=== PATIENT | female | born 1995 | race African-American/Black ===

== ENCOUNTER 2020-06-20 12:44 | Inpatient (IN) | payer MEDICAID ==
[~2020-06-20] VITALS: Ht 170.2 cm; Wt 61.7 kg
[2020-06-20 13:26] LABS: BASOPHILS % 1.4 % (0.0-2.0); EOSINOPHILS % 1.4 % (0.0-5.0); HEMATOCRIT. 36.1 % (36.0-48.0); HEMOGLOBIN. 12.6 g/dL (12.0-16.0); LYMPHOCYTES % 22.6 % (20.0-50.0); MEAN CORPUSCULAR HEMOGLOBIN 29.9 pg (28.0-32.0); MEAN CORPUSCULAR VOLUME 85.7 fL (81.0-99.0); MONOCYTES % 6.8 % (2.0-8.0); NEUTROPHILS % 67.8 % (40.0-76.0); RED BLOOD CELL COUNT 4.21 mill/uL (4.2-5.4); RED CELL DISTRIBUTION WIDTH 13.1 % (11.6-14.6)
[2020-06-20 13:28] LABS: CLARITY URINE CLEAR (CLEAR); COLOR URINE YELLOW (YELLOW); KETONES URINE NEGATIVE (NEGATIVE); LEUKOCYTE ESTERASE URINE TRACE (NEGATIVE); NITRITE URINE NEGATIVE (NEGATIVE); OCCULT BLOOD URINE NEGATIVE (NEGATIVE); PROTEIN URINE 1+ (NEGATIVE); SPECIFIC GRAVITY URINE 1.019 (1.005-1.030)
[2020-06-20] MEDS ORDERED: ACETAMINOPHEN 500MG TABLET PO NR (13:30)
[2020-06-20 13:35] LABS: CHLORIDE 107 mEq/L (98-107)
[2020-06-20 13:39] LABS: D-DIMER 0.94 mg/L FEU (<0.50); INR 0.9; PARTIAL THROMBOPLASTIN TIME 29.3 sec (23.4-31.0); PROTHROMBIN TIME 9.5 sec (9.6-11.0)
[2020-06-20 14:14] LABS: PLATELET 144 x1000/uL (130-400)
[2020-06-20] MEDS: LACTATED RINGERS 1,000 ML IV SCH (17:48)
[2020-06-20] MEDS ORDERED: BETAMETHASONE ACET/BETAMET 30 MG/5 ML VIAL IM STA (17:58)
[2020-06-20] MEDS ORDERED: LABETALOL HCL 5MG/ML VIAL 20ML IV PRN ×3 (18:00)
[2020-06-20] MEDS ORDERED: HYDRALAZINE 20MG/ML VIAL IV PRN (18:00)
[2020-06-20] MEDS: LABETALOL HCL 100MG TABLET PO SCH (18:17)
[2020-06-20 20:26] LABS: HEPATITIS B SURFACE ANTIGEN NEGATIVE
[2020-06-21] MEDS: LABETALOL HCL 100MG TABLET PO SCH ×2 (06:23→18:03)
[2020-06-21] MEDS: ACETAMINOPHEN 500MG TABLET PO PRN ×2 (10:54→22:39)
[2020-06-21] MEDS ORDERED: BETAMETHASONE ACET/BETAMET 30 MG/5 ML VIAL IM ONE (18:15)
[2020-06-21 20:16] LABS: CREATININE URINE (RAW) 68.9 mg/dl
[2020-06-21 21:14] LABS: *AMPHETAMINES SCREEN URINE NEGATIVE (NEGATIVE); *BARBITURATES SCREEN URINE NEGATIVE (NEGATIVE); *BENZODIAZEPINES SCREEN URINE NEGATIVE (NEGATIVE); *COCAINE SCREEN URINE NEGATIVE (NEGATIVE)
[2020-06-21 21:15] LABS: METHADONE URINE SCREEN NEGATIVE (NEGATIVE); OPIATES URINE SCREEN NEGATIVE (NEGATIVE); PHENCYCLIDINE URINE SCREEN NEGATIVE (NEGATIVE)
[2020-06-21 21:46] LABS: CANNABINOID URINE SCREEN PRESUMTIVE POSITIVE (NEGATIVE)
[2020-06-22] MEDS: LACTATED RINGERS 1,000 ML IV SCH ×2 (03:55→17:10)
[2020-06-22] MEDS: LABETALOL HCL 100MG TABLET PO SCH ×2 (06:34→18:32)
[2020-06-22] MEDS: ACETAMINOPHEN 500MG TABLET PO PRN (08:04)
[2020-06-22] MEDS ORDERED: KETOROLAC 30MG/ML VIAL IV PRN (20:15)
[2020-06-22] MEDS ORDERED: DIPHENHYDRAMINE 50MG/ML VIAL IV NR (20:15)
[2020-06-22] MEDS ORDERED: LABETALOL 5MG/ML SYR 20 MG/4 ML SYRINGE IV PRN (20:15)
[2020-06-22] MEDS ORDERED: BUTORPHANOL TARTRATE 2 MG/ML VIAL IM PRN (20:15)
[2020-06-22] MEDS ORDERED: ONDANSETRON HCL 4MG/2ML INJ IV PRN ×2 (20:15→20:45)
[2020-06-22] MEDS ORDERED: MEPERIDINE HCL/PF 25MG/ML CPJ IV PRN (20:15)
[2020-06-22] MEDS ORDERED: HYDROMORPHONE HCL/PF 2MG/ML CPJ IV PRN (20:15)
[2020-06-22] MEDS ORDERED: LABETALOL HCL 5MG/ML VIAL 20ML IV PRN (20:30)
[2020-06-22] MEDS ORDERED: MORPHINE SULFATE/PF 1MG/ML 10ML AMP ONE (20:42)
[2020-06-22] MEDS ORDERED: FENTANYL CITRATE/PF 50MCG/ML 2ML VIAL ONE (20:42)
[2020-06-22] MEDS ORDERED: HYDROCODONE/ACETAMINOPHEN 5/325MG TABLET PO PRN (20:45)
[2020-06-22] MEDS ORDERED: DIPHENHYDRAMINE 25MG CAPSULE PO PRN (20:45)
[2020-06-22] MEDS ORDERED: IBUPROFEN 400MG TABLET PO PRN (20:45)
[2020-06-22] MEDS ORDERED: BISACODYL 10MG SUPP PR PRN (20:45)
[2020-06-22] MEDS: DEXT 5%/LR + PITOCIN 20UNITS/L 1,000 ML IV SCH (22:49)
[2020-06-23] VITALS (14 sets, daily range): BP systolic 125–168; BP diastolic 70–89
[2020-06-23] MEDS: LABETALOL HCL 100MG TABLET PO SCH ×4 (02:22→19:21)
[2020-06-23] MEDS: DEXT 5%/LR + PITOCIN 20UNITS/L 1,000 ML IV SCH (04:20)
[2020-06-23 06:01] LABS: BASOPHILS % 0.2 % (0.0-2.0); HEMATOCRIT. 31.9 % (36.0-48.0); HEMOGLOBIN. 10.9 g/dL (12.0-16.0); MEAN CORPUSCULAR HEMOGLOBIN 29.6 pg (28.0-32.0); MEAN CORPUSCULAR VOLUME 86.5 fL (81.0-99.0); MEAN PLATELET VOLUME 11.5 fl (7.4-10.4); MONOCYTES % 5.6 % (2.0-8.0); NEUTROPHILS % 80.2 % (40.0-76.0); PLATELET 122 x1000/uL (130-400); RED BLOOD CELL COUNT 3.68 mill/uL (4.2-5.4); RED CELL DISTRIBUTION WIDTH 13.6 % (11.6-14.6)
[2020-06-23] MEDS ORDERED: PRENATAL VIT/FE FUMARATE/FA TABLET PO SCH (09:00)
[2020-06-23] MEDS ORDERED: LORATADINE 10MG TABLET PO SCH (09:00)
[2020-06-23] MEDS: SIMETHICONE 80MG TABLET CHEW PO SCH ×2 (10:13→19:22)
[2020-06-23] MEDS: FERROUS SULFATE 325MG TABLET PO SCH ×2 (10:14→19:22)
[2020-06-23] MEDS: MAGNESIUM/ALUMINUM HYDROXIDE/SIMETHICONE 30ML UDC PO SCH ×2 (10:14→19:21)
[2020-06-23] MEDS: DOCUSATE SODIUM 100MG CAPSULE PO SCH ×2 (19:22→21:00)
[2020-06-23] MEDS: IBUPROFEN 800MG TABLET PO PRN (20:59)
[2020-06-24 00:01] VITALS: BP 150/81
[2020-06-24 04:30] VITALS: BP 137/86
[2020-06-24] MEDS: LABETALOL HCL 100MG TABLET PO SCH ×3 (05:00→21:09)
[2020-06-24 08:00] VITALS: BP 151/87
[2020-06-24] MEDS: IBUPROFEN 800MG TABLET PO PRN (09:37)
[2020-06-24] MEDS: FERROUS SULFATE 325MG TABLET PO SCH (09:37)
[2020-06-24] MEDS: SIMETHICONE 80MG TABLET CHEW PO SCH ×2 (09:38→21:08)
[2020-06-24 12:20] VITALS: BP 134/60
[2020-06-24 15:20] VITALS: BP 122/68
[2020-06-24 19:30] VITALS: BP 129/85
[2020-06-24] MEDS: MAGNESIUM/ALUMINUM HYDROXIDE/SIMETHICONE 30ML UDC PO SCH (21:09)
[2020-06-25] MEDS: IBUPROFEN 800MG TABLET PO PRN (00:30)
[2020-06-25 05:10] VITALS: BP 139/71
[2020-06-25] MEDS: LABETALOL HCL 100MG TABLET PO SCH (05:51)
[2020-06-25 08:00] VITALS: BP 130/70
[2020-06-25] MEDS ORDERED: IBUP-2030 PO (13:26)
[2020-06-25] MEDS ORDERED: FERR325T23 PO (13:26)
== END 2020-06-25 14:30 | disposition home or self-care (01) | DRG 540 ==
LOC: 8 EST LDRP 12:44 → OBSVTOIN 12:44 → 8EST NSY 19:53 → 8 EST A/PP 21:27 → 8EST 06-23 01:51
PROVIDERS: ADMIT Obstetrics & Gynecology; ATTEND Obstetrics & Gynecology
PROC: 10D00Z1 Extraction of Products of Conception, Low, Open Approach (ICD-10-PCS; principal; 2020-06-22)
DX: O34.211 Maternal care for low transverse scar from previous cesarean delivery (principal); O60.14X0 Preterm labor third trimester with preterm delivery third trimester, not applicable or unspecified; O36.5930 Maternal care for other known or suspected poor fetal growth, third trimester, not applicable or unspecified; O13.4 Gestational [pregnancy-induced] hypertension without significant proteinuria, complicating childbirth; O41.03X0 Oligohydramnios, third trimester, not applicable or unspecified; Z37.0 Single live birth; Z3A.34 34 weeks gestation of pregnancy; O99.324 Drug use complicating childbirth; F12.10 Cannabis abuse, uncomplicated; O99.03 Anemia complicating the puerperium; D62 Acute posthemorrhagic anemia; D69.6 Thrombocytopenia, unspecified; O14.15 Severe pre-eclampsia, complicating the puerperium; D72.829 Elevated white blood cell count, unspecified; O99.13 Other diseases of the blood and blood-forming organs and certain disorders involving the immune mechanism complicating the puerperium; Z20.822 Contact with and (suspected) exposure to COVID-19
CPT/HCPCS: 36415; 76805; 76818; 80053; 80305; 80349; 81003; 82575; 84550; 85025; 85379; 85384; 86592; 86703; 86762; 86850; 86900; 87340; 87426; 88307; 99281; G0378; J0702; J1885; J2274; J2590; J3010; J3490; A4315

== ENCOUNTER 2022-12-07 07:01 | Emergency (ER) | payer MEDICAID ==
[~2022-12-07] VITALS: Ht 170.2 cm; Wt 57.0 kg
[~2022-12-07 07:01] MED LIST: FERR325T23 PO; IBUP-2030 PO
[2022-12-07 07:12] VITALS: BP 127/85; PULSE 94; RESP 16; TEMP 98.3; O2SAT 100
[2022-12-07 07:52] LABS: HEMATOCRIT 40.2 % (36.0-48.0); HEMOGLOBIN 13.8 g/dL (12.0-16.0); MEAN CORPUSCULAR HEMOGLOBIN 31.5 pg (28.0-32.0); MEAN CORPUSCULAR VOLUME 91.6 fL (81.0-99.0); PLATELET 179 x1000/uL (130-400); RED BLOOD CELL COUNT 4.39 mill/uL (4.2-5.4); RED CELL DISTRIBUTION WIDTH 15.2 % (11.6-14.6)
[2022-12-07 08:08] LABS: HCG SCREEN NEGATIVE
[2022-12-08 13:06] LABS: HIV SCREEN 4G Non Reactive (Non Reactive)
== END 2022-12-07 08:59 | disposition home or self-care (01) ==
LOC: ER 07:01
DX: N93.9 Abnormal uterine and vaginal bleeding, unspecified (principal)
CPT/HCPCS: 36415; 84703; 85027; 86592; 86703; 86850; 86900; 87389; 99283